=== PATIENT | male | born 1960 | race Two or more races ===

== ENCOUNTER 2016-06-19 23:26 | Emergency (ER) | payer MEDICAID, OTHER ==
[~2016-06-19] VITALS: Ht 165.1 cm; Wt 63.5 kg
[2016-06-20] MEDS ORDERED: FLUORESCEIN SOD 1 MG TEST STRIP OP ONE (08:15)
[2016-06-20] MEDS ORDERED: TETRACAINE HCL 0.5% OPTH(EYE) SOLN 2ML EACHEYE ONE (08:15)
[2016-06-20 08:38] VITALS: BP 144/88
== END 2016-06-20 09:59 | disposition home or self-care (01) ==
LOC: ER 23:33
DX: S05.01XA Injury of conjunctiva and corneal abrasion without foreign body, right eye, initial encounter (principal); Y93.89 Activity, other specified; Y99.9 Unspecified external cause status; Y92.89 Other specified places as the place of occurrence of the external cause

== ENCOUNTER 2020-10-12 18:00 | Inpatient (IN) | payer OTHER ==
[~2020-10-12] VITALS: Ht 165.1 cm; Wt 69.3 kg
[2020-10-12] MEDS ORDERED: METOCLOPRAMIDE HCL 5MG/ml INJ 2ml VIAL IV ONE (18:45)
[2020-10-12] MEDS ORDERED: ALUM & MAG HYDROX-SIMETH LIQ(MAALOX) 30 ML PO ONE (18:45)
[2020-10-12] MEDS ORDERED: LIDOCAINE VISCOUS 2% 15ML UD PO ONE (18:45)
[2020-10-12] MEDS ORDERED: SODIUM CHLORIDE 0.9% 2,000 ML IV ONE (18:45)
[2020-10-12 19:58] LABS: Basophils # (auto) 0.1 10 ^3/uL (0-0.2); Basophils % (auto) 0.6 % (0.0-2.0); Eosinophils # (auto) 0 10 ^3/uL (0-0.8); Lymphocytes # (auto) 1.1 10 ^3/uL (0.4-5.4); Monocytes # (auto) 0.8 10 ^3/uL (0-1.3); Neutrophils % (auto) 88.9 % (37.0-80.0)
[2020-10-12 20:00] LABS: Hematocrit 50.9 % (41.0-53.0); Hemoglobin 17.4 g/dL (13.5-17.5); Mean Corpuscular Hemoglobin 28.7 pg (28.0-32.0); Mean Corpuscular Hgb Conc. 34.2 g/dL (32.0-36.0); Mean Corpuscular Volume 83.9 fL (80.0-100.0); Monocytes % (auto) 4.5 % (0.0-12.0); Neutrophils # (auto) 16.4 10 ^3/uL (1.6-8.6); Nucleated Red Blood Cells % 0.7 %; Platelet Count (auto) 182 10^3/uL (140-450); Red Blood Cells 6.07 10^6/uL (4.5-5.90); Red Cell Distribution Width 16.3 % (11.8-14.3); White Blood Cell 18.5 10^3/uL (4.4-10.8)
[2020-10-12 20:12] LABS: Albumin 4.6 g/dL (3.4-5.0); BUN/Creatinine Ratio 8.7; Magnesium 2.3 mg/dL (1.6-2.6); Potassium 4.9 mmol/L (3.5-5.1)
[2020-10-12 20:13] LABS: Lactic Acid w/Reflex 5.1 mmol/L (0.4-2.0)
[2020-10-12 20:14] LABS: Bilirubin, Total 0.4 mg/dL (0.2-1.0); Total Protein 8.7 g/dL (6.4-8.2)
[2020-10-12] MEDS ORDERED: cefTRIAXone 1GM/50ML D5W 50 ML IV ONE (21:15)
[2020-10-12] MEDS ORDERED: SODIUM CHLORIDE 0.9% 1,000 ML IV ONE (21:15)
[2020-10-12 23:43] LABS: Urine Bacteria FEW /hpf (None Seen); Urine Blood Negative /uL (Negative); Urine Mucus FEW (None Seen); Urine Specific Gravity 1.016 (1.001-1.035); Urine WBC 2 /hpf (0 - 3)
[2020-10-13] MEDS ORDERED: NITROGLYCERIN 0.4 MG SL TAB SL PRN (00:30)
[2020-10-13] MEDS ORDERED: ACETAMINOPHEN 325 MG TAB PO PRN (00:30)
[2020-10-13] MEDS ORDERED: ONDANSETRON HCL 4 MG/2 ML VIAL IV PRN (00:30)
[2020-10-13] MEDS ORDERED: VANCOMYCIN PER PHARMACY 0 MG IV SCH (00:30)
[2020-10-13] MEDS ORDERED: MORPHINE SULF INJ 2 MG/ML SYRINGE 1ML IV PRN (00:30)
[2020-10-13] MEDS ORDERED: TEMAZEPAM 15 MG CAP PO PRN (00:30)
[2020-10-13] MEDS ORDERED: VANCOMYCIN 1GM/250ML 250 ML IV ONE (01:00)
[2020-10-13] MEDS: SODIUM CHLORIDE 0.9% 1,000 ML IV SCH ×2 (01:12→10:30)
[2020-10-13 02:44] VITALS: BP 142/76
[2020-10-13] MEDS: PIPERACILLIN-TAZOB 2.25GM 50 ML IV SCH ×4 (05:25→23:34)
[2020-10-13 06:29] LABS: BUN/Creatinine Ratio 16.3; Calcium 7.9 mg/dL (8.5-10.1)
[2020-10-13 08:46] VITALS: BP 133/77
[2020-10-13] MEDS: LISINOPRIL 20 MG TAB PO SCH (10:08)
[2020-10-13] MEDS: PANTOPRAZOLE 40 MG TAB PO SCH (10:08)
[2020-10-13] MEDS: HYDROcodone-ACET 5/325MG TAB PO PRN ×2 (10:25→18:54)
[2020-10-13 11:05] LABS: Amylase 44 U/L (25-115); Lipase 167 U/L (73-393)
[2020-10-13 13:00] VITALS: BP 137/76
[2020-10-13 17:00] VITALS: BP 129/80
[2020-10-13] MEDS ORDERED: DEXT1LIQ PO (17:45)
[2020-10-13] MEDS ORDERED: DIPH50TA9 PO (17:45)
[2020-10-13] MEDS ORDERED: GARL3CAP PO (17:45)
[2020-10-13] MEDS ORDERED: ST J150C2 PO (17:45)
[2020-10-13] MEDS ORDERED: SAWCAP2 PO (17:45)
[2020-10-13] MEDS ORDERED: LISI2.5T47 PO (17:45)
[2020-10-13] MEDS: SUCRALFATE 1 GM/10 ML ORAL SUSP PO SCH (21:40)
[2020-10-13 22:00] VITALS: BP 121/62
[2020-10-14] MEDS: SODIUM CHLORIDE 0.9% 1,000 ML IV SCH ×3 (03:20→18:04)
[2020-10-14 04:57] VITALS: BP 138/86
[2020-10-14] MEDS: PIPERACILLIN-TAZOB 2.25GM 50 ML IV SCH ×3 (05:27→18:04)
[2020-10-14] MEDS: SUCRALFATE 1 GM/10 ML ORAL SUSP PO SCH ×4 (06:19→21:42)
[2020-10-14 06:42] LABS: Basophils # (auto) 0.1 10 ^3/uL (0-0.2); Basophils % (auto) 1.2 % (0.0-2.0); Eosinophils # (auto) 0.1 10 ^3/uL (0-0.8); Eosinophils % (auto) 1.9 % (0.0-7.0); Hematocrit 43.5 % (41.0-53.0); Hemoglobin 14.7 g/dL (13.5-17.5); Lymphocytes # (auto) 2.2 10 ^3/uL (0.4-5.4); Lymphocytes % (auto) 30.8 % (10.0-50.0); Mean Corpuscular Hemoglobin 28.6 pg (28.0-32.0); Mean Corpuscular Hgb Conc. 33.7 g/dL (32.0-36.0); Mean Corpuscular Volume 84.8 fL (80.0-100.0); Monocytes # (auto) 0.5 10 ^3/uL (0-1.3); Monocytes % (auto) 7.1 % (0.0-12.0); Neutrophils # (auto) 4.3 10 ^3/uL (1.6-8.6); Nucleated Red Blood Cells % 0.1 %; Platelet Count (auto) 123 10^3/uL (140-450); Red Blood Cells 5.13 10^6/uL (4.5-5.90); Red Cell Distribution Width 15.9 % (11.8-14.3); White Blood Cell 7.3 10^3/uL (4.4-10.8)
[2020-10-14 06:52] LABS: Albumin 3.3 g/dL (3.4-5.0); Calcium 8.3 mg/dL (8.5-10.1); Potassium 4.1 mmol/L (3.5-5.1)
[2020-10-14 06:56] LABS: BUN/Creatinine Ratio 16.7; Bilirubin, Total 0.5 mg/dL (0.2-1.0); Total Protein 6.7 g/dL (6.4-8.2)
[2020-10-14 09:00] VITALS: BP 136/85
[2020-10-14] MEDS: LISINOPRIL 20 MG TAB PO SCH (10:05)
[2020-10-14] MEDS: PANTOPRAZOLE 40 MG TAB PO SCH (10:05)
[2020-10-14] MEDS: VANCOMYCIN 1GM/250ML 250 ML IV SCH ×2 (11:08→21:42)
[2020-10-14 13:00] VITALS: BP 159/100
[2020-10-14 17:00] VITALS: BP 141/71
[2020-10-14 22:00] VITALS: BP 135/76
[2020-10-15] MEDS: PIPERACILLIN-TAZOB 2.25GM 50 ML IV SCH ×3 (00:06→12:00)
[2020-10-15] MEDS: SODIUM CHLORIDE 0.9% 1,000 ML IV SCH ×2 (00:06→10:30)
[2020-10-15 04:53] VITALS: BP 156/72
[2020-10-15] MEDS: SUCRALFATE 1 GM/10 ML ORAL SUSP PO SCH ×2 (06:00→11:30)
[2020-10-15 09:07] VITALS: BP 133/89
[2020-10-15] MEDS: LISINOPRIL 20 MG TAB PO SCH (10:30)
[2020-10-15] MEDS: PANTOPRAZOLE 40 MG TAB PO SCH (10:30)
[2020-10-15] MEDS: VANCOMYCIN 1GM/250ML 250 ML IV SCH (10:30)
[2020-10-15 12:52] VITALS: BP 149/98
[2020-10-15 13:13] VITALS: BP 133/89
== END 2020-10-15 15:20 | disposition home or self-care (01) | DRG 720 ==
LOC: EDBD 18:00 → ER 18:00 → TELE 10-13 00:33 → TELE-WESTW 10-13 02:43
PROVIDERS: ADMIT Nurse Practitioner; ATTEND Family Medicine
DX: A41.9 Sepsis, unspecified organism (principal); N17.0 Acute kidney failure with tubular necrosis; E11.9 Type 2 diabetes mellitus without complications; E86.0 Dehydration; K52.9 Noninfective gastroenteritis and colitis, unspecified; I10 Essential (primary) hypertension; N40.0 Benign prostatic hyperplasia without lower urinary tract symptoms; Z20.822 Contact with and (suspected) exposure to COVID-19; Z83.3 Family history of diabetes mellitus; Z86.16 Personal history of COVID-19; Z89.022 Acquired absence of left finger(s)
CPT/HCPCS: 36415; 71046; 74176; 76700; 80048; 80053; 80202; 81001; 82150; 82565; 83036; 83605; 83690; 83735; 85025; 86677; 87040; 87086; 87426; 96361; 96365; 96366; 96367; 96375; G0378; J0696; J2543

== ENCOUNTER 2020-12-06 20:10 | Inpatient (IN) | payer OTHER ==
[~2020-12-06] VITALS: Ht 165.1 cm; Wt 69.5 kg
[~2020-12-06 20:10] MED LIST: DEXT1LIQ PO; DIPH50TA9 PO; GARL3CAP PO; LISI2.5T47 PO; SAWCAP2 PO; ST J150C2 PO
[2020-12-06 21:29] LABS: Basophils # (auto) 0.1 10 ^3/uL (0-0.2); Eosinophils # (auto) 0 10 ^3/uL (0-0.8); Eosinophils % (auto) 0.1 % (0.0-7.0); Hematocrit 46.1 % (41.0-53.0); Lymphocytes # (auto) 0.9 10 ^3/uL (0.4-5.4); Mean Corpuscular Hemoglobin 28.8 pg (28.0-32.0); Mean Corpuscular Hgb Conc. 34.6 g/dL (32.0-36.0); Mean Corpuscular Volume 83.3 fL (80.0-100.0); Monocytes # (auto) 0.8 10 ^3/uL (0-1.3); Monocytes % (auto) 6.1 % (0.0-12.0); Neutrophils # (auto) 11.6 10 ^3/uL (1.6-8.6); Neutrophils % (auto) 85.8 % (37.0-80.0); Platelet Count (auto) 126 10^3/uL (140-450); Red Blood Cells 5.54 10^6/uL (4.5-5.90); White Blood Cell 13.5 10^3/uL (4.4-10.8)
[2020-12-06] MEDS ORDERED: MORPHINE SULFATE 4 MG/ML SYR/VIAL IV ONE ×2 (21:30→22:45)
[2020-12-06] MEDS ORDERED: ONDANSETRON HCL 4 MG/2 ML VIAL IV ONE (21:30)
[2020-12-06 21:40] LABS: Albumin 3.9 g/dL (3.4-5.0); BUN/Creatinine Ratio 10.1; Calcium 8.8 mg/dL (8.5-10.1); Potassium 3.9 mmol/L (3.5-5.1)
[2020-12-06 21:43] LABS: Bilirubin, Total 0.6 mg/dL (0.2-1.0); Lactic Acid w/Reflex 2.6 mmol/L (0.4-2.0); Total Protein 7.9 g/dL (6.4-8.2); Urine Bacteria NONE SEEN /hpf (None Seen); Urine Blood 3+ /uL (Negative); Urine Budding Yeast FEW /hpf (None Seen); Urine Specific Gravity 1.019 (1.001-1.035); Urine WBC 12 /hpf (0 - 3)
[2020-12-06] MEDS ORDERED: KETOROLAC TROMETH 30 MG/ML 1ML VIAL IV ONE (22:45)
[2020-12-06] MEDS ORDERED: IOHEXOL 300 MG/ML 100ML BOTTLE IJ ONE (22:47)
[2020-12-07] MEDS ORDERED: cefTRIAXone 1GM/50ML D5W 50 ML IV ONE
[2020-12-07] MEDS: SODIUM CHLORIDE 0.9% 1,000 ML IV SCH ×2 (03:15→19:55)
[2020-12-07] MEDS ORDERED: ACETAMINOPHEN 325 MG TAB PO PRN (03:15)
[2020-12-07] MEDS ORDERED: hydrALAZINE HCL 20 MG/ML VL IV PRN (03:15)
[2020-12-07] MEDS ORDERED: MORPHINE SULFATE 4 MG/ML SYR/VIAL IV PRN (03:15)
[2020-12-07] MEDS ORDERED: ONDANSETRON HCL 4 MG/2 ML VIAL IV PRN (03:15)
[2020-12-07] MEDS ORDERED: MORPHINE SULF INJ 2 MG/ML SYRINGE 1ML IV PRN (03:15)
[2020-12-07] MEDS ORDERED: NITROGLYCERIN 0.4 MG SL TAB SL PRN (03:15)
[2020-12-07 05:00] VITALS: BP_SYST 131; BP_DIAS 75; BP_DIAS 77
[2020-12-07] MEDS ORDERED: TAMS0.4C36 PO (05:27)
[2020-12-07] MEDS ORDERED: ATOR80TA PO (05:29)
[2020-12-07] MEDS ORDERED: CHOL20007 BC (05:29)
[2020-12-07 08:23] LABS: Nucleated Red Blood Cells % 0.1 %
[2020-12-07 08:29] LABS: Basophils # (auto) 0 10 ^3/uL (0-0.2); Basophils % (auto) 0.5 % (0.0-2.0); Eosinophils # (auto) 0.1 10 ^3/uL (0-0.8); Eosinophils % (auto) 1.4 % (0.0-7.0); Hematocrit 41.4 % (41.0-53.0); Lymphocytes % (auto) 23.3 % (10.0-50.0); Mean Corpuscular Hemoglobin 28.3 pg (28.0-32.0); Mean Corpuscular Hgb Conc. 33.8 g/dL (32.0-36.0); Monocytes # (auto) 0.6 10 ^3/uL (0-1.3); Monocytes % (auto) 7.7 % (0.0-12.0); Neutrophils # (auto) 5.6 10 ^3/uL (1.6-8.6); Neutrophils % (auto) 67.1 % (37.0-80.0); Platelet Count (auto) 129 10^3/uL (140-450); Red Blood Cells 4.93 10^6/uL (4.5-5.90); White Blood Cell 8.4 10^3/uL (4.4-10.8)
[2020-12-07 08:31] LABS: Albumin 3.1 g/dL (3.4-5.0); Calcium 7.9 mg/dL (8.5-10.1); Potassium 3.8 mmol/L (3.5-5.1)
[2020-12-07 08:34] LABS: BUN/Creatinine Ratio 14.7; Bilirubin, Total 0.7 mg/dL (0.2-1.0); Total Protein 6.2 g/dL (6.4-8.2)
[2020-12-07] MEDS: FAMOTIDINE (10MG/ML) 2ML VL IV SCH ×2 (09:48→22:06)
[2020-12-07] MEDS: amLODIPine BESYLATE 5 MG TAB PO SCH (09:48)
[2020-12-07] MEDS: HEPARIN SODIUM (PORCINE) 5000 UNITS/ML 1ML VIAL SC SCH ×2 (10:00→22:21)
[2020-12-07 13:00] VITALS: BP 137/84
[2020-12-07 17:07] VITALS: BP 138/80
[2020-12-07] MEDS ORDERED: MANNITOL FTV 25% 12.5 GM/50 ML 50 ML IV ONE (20:00)
[2020-12-07] MEDS ORDERED: TAMSULOSIN HYDROCHLORIDE 0.4 MG CAP PO SCH (20:00)
[2020-12-07 22:00] VITALS: BP 160/89
[2020-12-07] MEDS ORDERED: cefTRIAXone 1GM/50ML D5W 50 ML IV SCH (22:00)
[2020-12-07] MEDS: HYDROcodone-ACET 5/325MG TAB PO PRN (22:06)
[2020-12-08 05:00] VITALS: BP 130/79
[2020-12-08 06:48] LABS: Basophils # (auto) 0 10 ^3/uL (0-0.2); Basophils % (auto) 0.4 % (0.0-2.0); Eosinophils # (auto) 0 10 ^3/uL (0-0.8); Eosinophils % (auto) 0.3 % (0.0-7.0); Hematocrit 42.4 % (41.0-53.0); Hemoglobin 14.4 g/dL (13.5-17.5); Lymphocytes # (auto) 1.4 10 ^3/uL (0.4-5.4); Lymphocytes % (auto) 12.1 % (10.0-50.0); Mean Corpuscular Hemoglobin 28.3 pg (28.0-32.0); Mean Corpuscular Hgb Conc. 33.9 g/dL (32.0-36.0); Mean Corpuscular Volume 83.5 fL (80.0-100.0); Monocytes # (auto) 0.6 10 ^3/uL (0-1.3); Monocytes % (auto) 5.8 % (0.0-12.0); Neutrophils # (auto) 9.2 10 ^3/uL (1.6-8.6); Neutrophils % (auto) 81.4 % (37.0-80.0); Platelet Count (auto) 145 10^3/uL (140-450); Red Blood Cells 5.08 10^6/uL (4.5-5.90); Red Cell Distribution Width 15.9 % (11.8-14.3); White Blood Cell 11.3 10^3/uL (4.4-10.8)
[2020-12-08] MEDS: HYDROcodone-ACET 5/325MG TAB PO PRN (06:57)
[2020-12-08 07:03] LABS: Potassium 3.8 mmol/L (3.5-5.1)
[2020-12-08 07:10] LABS: Albumin 3.4 g/dL (3.4-5.0); BUN/Creatinine Ratio 9.8; Bilirubin, Total 0.6 mg/dL (0.2-1.0); Calcium 8.3 mg/dL (8.5-10.1)
[2020-12-08] MEDS: FAMOTIDINE (10MG/ML) 2ML VL IV SCH (08:43)
[2020-12-08] MEDS: HEPARIN SODIUM (PORCINE) 5000 UNITS/ML 1ML VIAL SC SCH (08:44)
[2020-12-08] MEDS: amLODIPine BESYLATE 5 MG TAB PO SCH (08:44)
[2020-12-08 09:00] VITALS: BP 139/86
[2020-12-08 13:00] VITALS: BP 135/80
[2020-12-08 13:58] VITALS: BP 139/86
== END 2020-12-08 14:43 | disposition home or self-care (01) | DRG 720 ==
LOC: ER 20:10 → TELE-EAST 12-07 03:13
PROVIDERS: ADMIT Nurse Practitioner Family; ATTEND Internal Medicine
DX: A41.9 Sepsis, unspecified organism (principal); N17.0 Acute kidney failure with tubular necrosis; N20.0 Calculus of kidney; K76.0 Fatty (change of) liver, not elsewhere classified; N39.0 Urinary tract infection, site not specified; Z20.822 Contact with and (suspected) exposure to COVID-19; N18.9 Chronic kidney disease, unspecified; Z83.3 Family history of diabetes mellitus; Z83.6 Family history of other diseases of the respiratory system; E86.0 Dehydration; G47.00 Insomnia, unspecified; E78.5 Hyperlipidemia, unspecified; I12.9 Hypertensive chronic kidney disease with stage 1 through stage 4 chronic kidney disease, or unspecified chronic kidney disease; M10.9 Gout, unspecified; N40.0 Benign prostatic hyperplasia without lower urinary tract symptoms; Z79.899 Other long term (current) drug therapy
CPT/HCPCS: 36415; 74177; 80053; 81001; 83036; 83605; 84443; 85025; 85049; 87086; 87426; 96361; 96365; 96375; G0378; J0696; J1885; J2405; J3490

== ENCOUNTER 2022-12-27 23:33 | Inpatient (IN) | payer OTHER ==
[~2022-12-27] VITALS: Ht 165.1 cm; Wt 74.6 kg
[~2022-12-27 23:33] MED LIST changes: +ATOR80TA PO; +CHOL20007 BC; +ST J PO; -ST J150C2 PO; +TAMS0.4C36 PO
[2022-12-28] VITALS (7 sets, daily range): BP systolic 110–123; BP diastolic 64–81; PULSE 73–86; RESP 13–36; TEMP 97.5–97.7; O2SAT 93–97
[2022-12-28 00:07] LABS: Urine Bacteria NONE SEEN /hpf (None Seen); Urine Blood 3+ /uL (Negative); Urine Specific Gravity 1.027 (1.001-1.035); Urine WBC 8 /hpf (0 - 3)
[2022-12-28] MEDS ORDERED: HYDROcodone-ACET 5/325MG TAB PO ONE (01:45)
[2022-12-28 02:12] LABS: Basophils # (auto) 0.1 10 ^3/uL (0-0.2); Basophils % (auto) 0.8 % (0.0-2.0); Eosinophils # (auto) 0 10 ^3/uL (0-0.8); Eosinophils % (auto) 0.2 % (0.0-7.0); Hematocrit 50.1 % (41.0-53.0); Hemoglobin 16.8 g/dL (13.5-17.5); Lymphocytes # (auto) 2.8 10 ^3/uL (0.4-5.4); Lymphocytes % (auto) 18.5 % (10.0-50.0); Mean Corpuscular Hgb Conc. 33.5 g/dL (32.0-36.0); Mean Corpuscular Volume 86.6 fL (80.0-100.0); Monocytes # (auto) 0.7 10 ^3/uL (0-1.3); Monocytes % (auto) 4.8 % (0.0-12.0); Neutrophils # (auto) 11.5 10 ^3/uL (1.6-8.6); Neutrophils % (auto) 75.7 % (37.0-80.0); Nucleated Red Blood Cells % 0.1 %; Red Blood Cells 5.78 10^6/uL (4.5-5.90); Red Cell Distribution Width 15.2 % (11.8-14.3); White Blood Cell 15.2 10^3/uL (4.4-10.8)
[2022-12-28 02:26] LABS: Albumin 4.2 g/dL (3.4-5.0); BUN/Creatinine Ratio 14.8 (10.0-20.0); Calcium 9.3 mg/dL (8.5-10.1)
[2022-12-28 02:30] LABS: Bilirubin, Total 0.5 mg/dL (0.2-1.0)
[2022-12-28] MEDS ORDERED: KETOROLAC TROMETH 30 MG/ML 1ML VIAL IV ONE ×2 (03:30→07:45)
[2022-12-28] MEDS ORDERED: ACETAMINOPHEN 325 MG TAB PO PRN (07:45)
[2022-12-28] MEDS ORDERED: SODIUM CHLORIDE 0.9% 2,200 ML IV ONE (07:45)
[2022-12-28] MEDS ORDERED: ONDANSETRON HCL 4 MG/2 ML VIAL IV ONE (07:45)
[2022-12-28] MEDS ORDERED: cefTRIAXone 1GM/50ML D5W 50 ML IV SCH (07:45)
[2022-12-28] MEDS ORDERED: TAMSULOSIN HYDROCHLORIDE 0.4 MG CAP PO ONE (07:45)
[2022-12-28] MEDS ORDERED: PANTOPRAZOLE 40 MG/10 ML VIAL INJ IV ONE (07:45)
[2022-12-28] MEDS ORDERED: HYDROmorphone HCL 2 MG/ML VL/or syr IV ONE (07:45)
[2022-12-28 08:28] LABS: INR 1.03 (0.9-1.15); Partial Thromboplastin Time 30.3 SEC (24.5-34.5)
[2022-12-28 09:03] LABS: Lactic Acid w/Reflex 3.3 mmol/L (0.4-2.0)
[2022-12-28] MEDS ORDERED: HYDROmorphone HCL 2 MG/ML VL/or syr IV PRN (09:15)
[2022-12-28] MEDS ORDERED: MORPHINE SULFATE INJ 2 MG/ml SYRG IV PRN (09:15)
[2022-12-28] MEDS ORDERED: NITROGLYCERIN 0.4 MG SL TAB SL PRN (09:15)
[2022-12-28] MEDS ORDERED: hydrALAZINE HCL 20 MG/ML VL IV PRN (09:15)
[2022-12-28] MEDS ORDERED: DEXTROSE (50%) 50ML SYRG IV PRN (09:15)
[2022-12-28] MEDS: ATORVASTATIN 20 MG TAB PO SCH (10:39)
[2022-12-28] MEDS: PANTOPRAZOLE 40 MG/10 ML VIAL INJ IV SCH (10:39)
[2022-12-28] MEDS: SODIUM CHLORIDE 0.9% 1,000 ML IV SCH ×3 (10:52→22:06)
[2022-12-28] MEDS: InsuLIN REG 1unit/0.01ml Soln (100units/ml) SC SCH ×3 (11:30→22:00)
[2022-12-28] MEDS: ACCU-CHEK COMFORT CURVE STRIP VI SCH ×3 (11:30→22:05)
[2022-12-28] MEDS: TAMSULOSIN HYDROCHLORIDE 0.4 MG CAP PO SCH (17:23)
[2022-12-28] MEDS: HYDROcodone-ACET 7.5/325MG TAB PO PRN (18:07)
[2022-12-29] VITALS (7 sets, daily range): BP systolic 130–153; BP diastolic 68–79; PULSE 63–89; RESP 16–20; TEMP 97.6–98.1; O2SAT 91–95
[2022-12-29] MEDS: SODIUM CHLORIDE 0.9% 1,000 ML IV SCH ×4 (03:51→21:45)
[2022-12-29] MEDS: InsuLIN REG 1unit/0.01ml Soln (100units/ml) SC SCH ×4 (06:21→21:08)
[2022-12-29] MEDS: ACCU-CHEK COMFORT CURVE STRIP VI SCH ×4 (06:21→21:08)
[2022-12-29 07:05] LABS: Basophils # (auto) 0 10 ^3/uL (0-0.2); Basophils % (auto) 0.5 % (0.0-2.0); Eosinophils # (auto) 0.1 10 ^3/uL (0-0.8); Eosinophils % (auto) 1.4 % (0.0-7.0); Hematocrit 42.1 % (41.0-53.0); Lymphocytes # (auto) 1.5 10 ^3/uL (0.4-5.4); Lymphocytes % (auto) 16.9 % (10.0-50.0); Mean Corpuscular Hemoglobin 29.1 pg (28.0-32.0); Mean Corpuscular Hgb Conc. 33.4 g/dL (32.0-36.0); Mean Corpuscular Volume 87.2 fL (80.0-100.0); Monocytes # (auto) 0.6 10 ^3/uL (0-1.3); Monocytes % (auto) 7.2 % (0.0-12.0); Neutrophils # (auto) 6.5 10 ^3/uL (1.6-8.6); Nucleated Red Blood Cells % 0.2 %; Red Blood Cells 4.83 10^6/uL (4.5-5.90); Red Cell Distribution Width 15.2 % (11.8-14.3); White Blood Cell 8.7 10^3/uL (4.4-10.8)
[2022-12-29 07:18] LABS: Albumin 2.9 g/dL (3.4-5.0); BUN/Creatinine Ratio 14.6 (10.0-20.0); Calcium 7.5 mg/dL (8.5-10.1); Potassium 4.4 mmol/L (3.5-5.1)
[2022-12-29 07:20] LABS: Bilirubin, Total 0.6 mg/dL (0.2-1.0); Total Protein 5.7 g/dL (6.4-8.2)
[2022-12-29] MEDS: PANTOPRAZOLE 40 MG/10 ML VIAL INJ IV SCH (09:23)
[2022-12-29] MEDS: ATORVASTATIN 20 MG TAB PO SCH (09:23)
[2022-12-29] MEDS: cefTRIAXone 1GM/50ML D5W 50 ML IV SCH (09:24)
[2022-12-29] MEDS: HYDROcodone-ACET 7.5/325MG TAB PO PRN (10:43)
[2022-12-29] MEDS ORDERED: MANNITOL FTV 25% 12.5 GM/50 ML 50 ML IV ONE (13:45)
[2022-12-29] MEDS: TAMSULOSIN HYDROCHLORIDE 0.4 MG CAP PO SCH (17:48)
[2022-12-30] MEDS: SODIUM CHLORIDE 0.9% 1,000 ML IV SCH ×2 (03:28→06:08)
[2022-12-30 05:00] VITALS: BP 141/77; PULSE 70; RESP 16; TEMP 98.1; O2SAT 93
[2022-12-30] MEDS: ACCU-CHEK COMFORT CURVE STRIP VI SCH ×2 (06:09→11:30)
[2022-12-30] MEDS: InsuLIN REG 1unit/0.01ml Soln (100units/ml) SC SCH ×2 (06:09→11:30)
[2022-12-30 06:53] LABS: Basophils # (auto) 0 10 ^3/uL (0-0.2); Basophils % (auto) 0.5 % (0.0-2.0); Eosinophils # (auto) 0.1 10 ^3/uL (0-0.8); Eosinophils % (auto) 1.4 % (0.0-7.0); Hematocrit 39.8 % (41.0-53.0); Hemoglobin 13.2 g/dL (13.5-17.5); Lymphocytes # (auto) 1.7 10 ^3/uL (0.4-5.4); Lymphocytes % (auto) 18.8 % (10.0-50.0); Mean Corpuscular Hemoglobin 29.1 pg (28.0-32.0); Mean Corpuscular Hgb Conc. 33.2 g/dL (32.0-36.0); Mean Corpuscular Volume 87.7 fL (80.0-100.0); Monocytes # (auto) 0.6 10 ^3/uL (0-1.3); Monocytes % (auto) 6.7 % (0.0-12.0); Neutrophils # (auto) 6.7 10 ^3/uL (1.6-8.6); Neutrophils % (auto) 72.6 % (37.0-80.0); Nucleated Red Blood Cells % 0.1 %; Red Blood Cells 4.55 10^6/uL (4.5-5.90); White Blood Cell 9.3 10^3/uL (4.4-10.8)
[2022-12-30 07:03] LABS: BUN/Creatinine Ratio 15.6 (10.0-20.0); Calcium 7.6 mg/dL (8.5-10.1)
[2022-12-30 08:00] VITALS: PULSE 88
[2022-12-30 09:00] VITALS: BP 157/89; PULSE 74; RESP 18; TEMP 98.1; O2SAT 94
[2022-12-30] MEDS: cefTRIAXone 1GM/50ML D5W 50 ML IV SCH (09:25)
[2022-12-30] MEDS: PANTOPRAZOLE 40 MG/10 ML VIAL INJ IV SCH (09:25)
[2022-12-30] MEDS: ATORVASTATIN 20 MG TAB PO SCH (09:25)
[2022-12-30] MEDS ORDERED: LACTULOSE 20Gm/30ML SOLN PO ONE (11:00)
[2022-12-30] MEDS ORDERED: PANT40T PO (11:01)
[2022-12-30] MEDS ORDERED: ACET1CAP14 PO (11:01)
[2022-12-30] MEDS ORDERED: CEPH500C PO (11:01)
[2022-12-30] MEDS ORDERED: TAMS1CAP25 PO (11:01)
[2022-12-30 13:00] VITALS: BP 166/81; PULSE 65; RESP 18; TEMP 99; O2SAT 96
== END 2022-12-30 15:39 | disposition home or self-care (01) | DRG 720 ==
LOC: ER 23:37 → TELE 12-28 09:22 → TELE-WESTW 12-28 12:14
PROVIDERS: ADMIT Internal Medicine; ATTEND Student in an Organized Health Care Education/Training Program
DX: A41.9 Sepsis, unspecified organism (principal); E87.20 Acidosis, unspecified; N17.9 Acute kidney failure, unspecified; N13.8 Other obstructive and reflux uropathy; E11.65 Type 2 diabetes mellitus with hyperglycemia; N13.6 Pyonephrosis; E78.5 Hyperlipidemia, unspecified; N40.1 Benign prostatic hyperplasia with lower urinary tract symptoms; I10 Essential (primary) hypertension; M10.9 Gout, unspecified; F10.20 Alcohol dependence, uncomplicated; Y90.9 Presence of alcohol in blood, level not specified; Z79.899 Other long term (current) drug therapy; N30.01 Acute cystitis with hematuria
CPT/HCPCS: 36415; 71045; 74176; 80048; 80053; 81001; 82553; 82962; 83605; 83930; 85025; 85610; 85730; 86850; 86900; 86901; 87040; 87086; 93005; 96365; 96375; C9113; G0378; J0696; J1815; J1885; J2405

== ENCOUNTER 2023-08-17 12:05 | Emergency (ER) | payer OTHER ==
[~2023-08-17] VITALS: Ht 165.1 cm; Wt 69.7 kg
[~2023-08-17 12:05] MED LIST changes: +ACET1CAP14 PO; +CEPH500C PO; +PANT40T PO; +TAMS1CAP25 PO
[2023-08-17] MEDS ORDERED: INDO50CA82 PO (18:07)
[2023-08-17] MEDS ORDERED: HYDR-4902 PO (18:07)
[2023-08-17] MEDS: HYDROcodone-ACET 5/325MG TAB PO ONE (18:24)
[2023-08-17] MEDS: DexAMETHasone SOD PHOS 10MG/1ML VIAL INJ IM ONE (18:25)
[2023-08-17 18:44] VITALS: BP 149/77; PULSE 83; RESP 18; TEMP 98; O2SAT 97
== END 2023-08-17 18:46 | disposition home or self-care (01) ==
LOC: ER 12:05
DX: M10.9 Gout, unspecified (principal); M25.461 Effusion, right knee; I10 Essential (primary) hypertension; E78.5 Hyperlipidemia, unspecified
CPT/HCPCS: 36415; 73562; 84550; 93971; 96372; 99285; J1100

== ENCOUNTER 2023-10-19 13:42 | Inpatient (IN) | payer OTHER ==
[~2023-10-19] VITALS: Ht 165.1 cm; Wt 71.4 kg
[~2023-10-19 13:42] MED LIST changes: +HYDR-4902 PO; +INDO50CA82 PO
[2023-10-19 16:41] LABS: Basophils # (auto) 0 10 ^3/uL (0-0.2); Basophils % (auto) 0.4 % (0.0-2.0); Eosinophils # (auto) 0 10 ^3/uL (0-0.8); Hemoglobin 15.5 g/dL (13.5-17.5); Lymphocytes % (auto) 7.8 % (10.0-50.0); Mean Corpuscular Hemoglobin 28.6 pg (28.0-32.0); Mean Corpuscular Hgb Conc. 33.6 g/dL (32.0-36.0); Mean Corpuscular Volume 84.9 fL (80.0-100.0); Monocytes # (auto) 0.7 10 ^3/uL (0-1.3); Neutrophils # (auto) 10.7 10 ^3/uL (1.6-8.6); Neutrophils % (auto) 85.8 % (37.0-80.0); Nucleated Red Blood Cells % 0.1 %; Red Blood Cells 5.41 10^6/uL (4.5-5.90); Red Cell Distribution Width 15.7 % (11.8-14.3); White Blood Cell 12.5 10^3/uL (4.4-10.8)
[2023-10-19 17:02] LABS: Alanine Aminotransferase 15 U/L (7-40); Anion Gap 8 (5-15); BUN/Creatinine Ratio 10.2 (10.0-20.0); Blood Urea Nitrogen 13 mg/dL (9-23); Carbon Dioxide 26 mmol/L (20-30); Chloride 101 mmol/L (98-107); Glucose 142 mg/dL (74-106); Lipase 47 U/L (12-53); Potassium 3.5 mmol/L (3.5-5.1); Sodium 135 mmol/L (136-145)
[2023-10-19 17:03] LABS: Albumin 4.7 g/dL (3.2-4.8); Aspartate Aminotransferase 17 U/L (13-40); Total Protein 6.8 g/dL (5.7-8.2)
[2023-10-19 17:25] LABS: Alkaline Phosphatase 90 U/L (46-116)
[2023-10-19] MEDS: fentaNYL CITRATE 100 MCG/2 ML VL IV ONE ×2 (18:34→19:52)
[2023-10-19 18:40] VITALS: PULSE 106; RESP 20; O2SAT 97
[2023-10-19 19:03] LABS: Urine Bacteria None Seen /hpf (None Seen)
[2023-10-19 19:29] LABS: Urine Blood Negative /uL (Negative); Urine Clarity Clear (Clear); Urine Color Yellow (Yellow); Urine Protein, UAD 1+ (Negative); Urine Specific Gravity 1.027 (1.001-1.035); Urine Urobilinogen Normal (Negative); Urine WBC 1 /hpf (0 - 3); Urine pH 5.5 (5.0-9.0)
[2023-10-19 19:40] VITALS: PULSE 104; RESP 18; O2SAT 94
[2023-10-19] MEDS: SODIUM CHLORIDE 0.9% 1,000 ML IV ONE ×2 (19:47→21:08)
[2023-10-19] MEDS: TAMSULOSIN HYDROCHLORIDE 0.4 MG CAP PO ONE (19:52)
[2023-10-19] MEDS: cefTRIAXone 1GM/50ML D5W 50 ML IV ONE (19:53)
[2023-10-19] MEDS ORDERED: MORPHINE SULFATE INJ 2 MG/ml SYRG IV PRN (20:45)
[2023-10-19] MEDS ORDERED: hydrALAZINE HCL 20 MG/ML VL IV PRN (20:45)
[2023-10-19] MEDS ORDERED: NITROGLYCERIN 0.4 MG SL TAB SL PRN (20:45)
[2023-10-19] MEDS ORDERED: DEXTROSE (50%) 50ML SYRG IV PRN (20:45)
[2023-10-19] MEDS: SODIUM CHLORIDE 0.9% 1,000 ML IV SCH (21:08)
[2023-10-19] MEDS: ACCU-CHEK COMFORT CURVE STRIP VI SCH (21:16)
[2023-10-19] MEDS: InsuLIN REG 1unit/0.01ml Soln (100units/ml) SC SCH (21:16)
[2023-10-19] MEDS: ONDANSETRON HCL 4 MG/2 ML VIAL IV PRN (21:44)
[2023-10-19] MEDS: HYDROmorphone HCL 2 MG/ML VL/or syr IV PRN (21:45)
[2023-10-20] MEDS ORDERED: BENA10TA16 PO (01:53)
[2023-10-20] MEDS ORDERED: MAGN400T40 PO (01:54)
[2023-10-20] MEDS ORDERED: METF-370 PO (01:54)
[2023-10-20 01:55] VITALS: BP 151/81; PULSE 75; RESP 20; TEMP 98.1; TEMP 98.7; O2SAT 98
[2023-10-20 05:00] VITALS: BP 150/92; PULSE 89; RESP 22; TEMP 97.9; O2SAT 95
[2023-10-20 07:09] LABS: Basophils # (auto) 0 10 ^3/uL (0-0.2); Basophils % (auto) 0.2 % (0.0-2.0); Eosinophils # (auto) 0 10 ^3/uL (0-0.8); Eosinophils % (auto) 0.4 % (0.0-7.0); Hematocrit 42.1 % (41.0-53.0); Hemoglobin 13.9 g/dL (13.5-17.5); Lymphocytes # (auto) 1.4 10 ^3/uL (0.4-5.4); Lymphocytes % (auto) 15.7 % (10.0-50.0); Mean Corpuscular Hemoglobin 28.6 pg (28.0-32.0); Mean Corpuscular Hgb Conc. 33.1 g/dL (32.0-36.0); Mean Corpuscular Volume 86.3 fL (80.0-100.0); Monocytes # (auto) 0.7 10 ^3/uL (0-1.3); Monocytes % (auto) 7.6 % (0.0-12.0); Neutrophils % (auto) 76.1 % (37.0-80.0); Nucleated Red Blood Cells % 0.1 %; Red Blood Cells 4.88 10^6/uL (4.5-5.90); White Blood Cell 9.1 10^3/uL (4.4-10.8)
[2023-10-20 07:10] LABS: Chloride 103 mmol/L (98-107); Potassium 3.5 mmol/L (3.5-5.1); Sodium 136 mmol/L (136-145)
[2023-10-20 07:11] LABS: Anion Gap 9 (5-15); Calcium 8.9 mg/dL (8.5-10.1); Carbon Dioxide 24 mmol/L (20-30)
[2023-10-20 07:16] LABS: Blood Urea Nitrogen 9 mg/dL (9-23); Glucose 145 mg/dL (74-106)
[2023-10-20 09:00] VITALS: BP 152/85; PULSE 85; RESP 20; TEMP 97.9; O2SAT 94
[2023-10-20] MEDS: ENOXAPARIN SOD 40 MG/0.4 ML SYRINGE SC SCH (09:51)
[2023-10-20] MEDS: KETOROLAC TROMETH 30 MG/ML 1ML VIAL IV PRN (12:17)
[2023-10-20 13:13] VITALS: BP 148/89
[2023-10-20 17:00] VITALS: BP 137/77; PULSE 74; RESP 20; TEMP 98.2; O2SAT 94
[2023-10-20] MEDS: TAMSULOSIN HYDROCHLORIDE 0.4 MG CAP PO SCH (17:54)
[2023-10-20 21:00] VITALS: BP 164/103; PULSE 85; RESP 22; TEMP 98.2; O2SAT 96
[2023-10-21] VITALS (7 sets, daily range): BP systolic 136–161; BP diastolic 69–100; PULSE 61–86; RESP 17–20; TEMP 97.9–99.2; O2SAT 93–95
[2023-10-21] MEDS: HYDROmorphone HCL 2 MG/ML VL/or syr IV PRN (00:05)
[2023-10-21] MEDS ORDERED: HYDROmorphone HCL 2 MG/ML VL/or syr IV PRN (09:30)
[2023-10-21] MEDS: HYDROcodone-ACET 5/325MG TAB PO SCH (10:10)
[2023-10-21 10:27] LABS: Basophils # (auto) 0 10 ^3/uL (0-0.2); Basophils % (auto) 0.6 % (0.0-2.0); Eosinophils # (auto) 0.1 10 ^3/uL (0-0.8); Eosinophils % (auto) 1.2 % (0.0-7.0); Hematocrit 40.8 % (41.0-53.0); Hemoglobin 13.5 g/dL (13.5-17.5); Lymphocytes # (auto) 1.2 10 ^3/uL (0.4-5.4); Lymphocytes % (auto) 16.3 % (10.0-50.0); Mean Corpuscular Hemoglobin 28.5 pg (28.0-32.0); Mean Corpuscular Hgb Conc. 33.2 g/dL (32.0-36.0); Monocytes # (auto) 0.5 10 ^3/uL (0-1.3); Monocytes % (auto) 6.6 % (0.0-12.0); Neutrophils # (auto) 5.5 10 ^3/uL (1.6-8.6); Neutrophils % (auto) 75.3 % (37.0-80.0); Red Blood Cells 4.74 10^6/uL (4.5-5.90); Red Cell Distribution Width 15.9 % (11.8-14.3); White Blood Cell 7.2 10^3/uL (4.4-10.8)
[2023-10-21 10:41] LABS: Alanine Aminotransferase 10 U/L (7-40); Albumin 3.8 g/dL (3.2-4.8); Alkaline Phosphatase 66 U/L (46-116); Anion Gap 6 (5-15); Aspartate Aminotransferase 18 U/L (13-40); BUN/Creatinine Ratio 8.3 (10.0-20.0); Bilirubin, Total 0.7 mg/dL (0.2-1.0); Blood Urea Nitrogen 11 mg/dL (9-23); Calcium 8.9 mg/dL (8.5-10.1); Carbon Dioxide 23 mmol/L (20-30); Chloride 106 mmol/L (98-107); Potassium 3.7 mmol/L (3.5-5.1); Sodium 135 mmol/L (136-145); Total Protein 5.9 g/dL (5.7-8.2)
[2023-10-21 10:43] LABS: Glucose 249 mg/dL (74-106)
[2023-10-21 12:59] LABS: INR 1.01 (0.9-1.15); Prothrombin Time 10.7 sec (9.3-11.8)
[2023-10-21] MEDS: INSULIN LANTUS (GLARGINE) 1 /0.01ml (100units/ml) SC SCH (21:59)
[2023-10-22] VITALS (12 sets, daily range): BP systolic 119–167; BP diastolic 64–89; PULSE 53–99; RESP 12–20; TEMP 97.6–98.2; O2SAT 93–100
[2023-10-22 06:15] LABS: Basophils # (auto) 0 10 ^3/uL (0-0.2); Basophils % (auto) 0.7 % (0.0-2.0); Eosinophils # (auto) 0.2 10 ^3/uL (0-0.8); Eosinophils % (auto) 4.1 % (0.0-7.0); Hematocrit 38.3 % (41.0-53.0); Hemoglobin 12.8 g/dL (13.5-17.5); Lymphocytes % (auto) 35.4 % (10.0-50.0); Mean Corpuscular Hemoglobin 28.4 pg (28.0-32.0); Mean Corpuscular Hgb Conc. 33.3 g/dL (32.0-36.0); Mean Corpuscular Volume 85.1 fL (80.0-100.0); Monocytes # (auto) 0.5 10 ^3/uL (0-1.3); Monocytes % (auto) 8.6 % (0.0-12.0); Neutrophils # (auto) 2.8 10 ^3/uL (1.6-8.6); Neutrophils % (auto) 51.2 % (37.0-80.0); Nucleated Red Blood Cells % 0.2 %; Red Cell Distribution Width 15.8 % (11.8-14.3); White Blood Cell 5.5 10^3/uL (4.4-10.8)
[2023-10-22 06:29] LABS: Alanine Aminotransferase 11 U/L (7-40); Albumin 3.5 g/dL (3.2-4.8); Alkaline Phosphatase 59 U/L (46-116); Anion Gap 7 (5-15); Aspartate Aminotransferase 17 U/L (13-40); BUN/Creatinine Ratio 9.9 (10.0-20.0); Blood Urea Nitrogen 10 mg/dL (9-23); Calcium 8.9 mg/dL (8.5-10.1); Carbon Dioxide 23 mmol/L (20-30); Chloride 111 mmol/L (98-107); Potassium 3.8 mmol/L (3.5-5.1); Sodium 141 mmol/L (136-145)
[2023-10-22 06:30] LABS: Bilirubin, Total 0.5 mg/dL (0.2-1.0); Total Protein 5.5 g/dL (5.7-8.2)
[2023-10-22 06:32] LABS: Glucose 115 mg/dL (74-106)
[2023-10-22] MEDS: LIDOCAINE 2%HCL (LOCAL ANESTH.) INJ 20ML MDV ONE (12:01)
[2023-10-22] MEDS: MIDAZOLAM HCL 2MG/2ML 2ml VIAL (1mg/ml) ONE (12:03)
[2023-10-22] MEDS: fentaNYL CITRATE 100 MCG/2 ML VL ONE (12:03)
[2023-10-22] MEDS: IODIXANOL 320MG/ML 100ML BTL IV ONE (12:15)
[2023-10-22] MEDS: hydrALAZINE HCL 20 MG/ML VL ONE (12:19)
[2023-10-22] MEDS: cefTRIAXone 1GM/50ML D5W 50 ML IV ONE (13:01)
== END 2023-10-22 21:43 | disposition home health service (06) | DRG 465 ==
LOC: EDUNIT# 13:42 → ER 13:42 → EDBD 13:42 → OVERFLOW 20:41 → WEST WING 20:41 → OBSVTOIN 10-20 14:44
PROVIDERS: ADMIT Hospitalist; ATTEND Hospitalist
PROC: 0T9430Z Drainage of Left Kidney Pelvis with Drainage Device, Percutaneous Approach (ICD-10-PCS; principal; 2023-10-22)
DX: N13.2 Hydronephrosis with renal and ureteral calculous obstruction (principal); E11.9 Type 2 diabetes mellitus without complications; E78.5 Hyperlipidemia, unspecified; I10 Essential (primary) hypertension; N40.0 Benign prostatic hyperplasia without lower urinary tract symptoms; Z79.899 Other long term (current) drug therapy; Z83.3 Family history of diabetes mellitus; Z81.1 Family history of alcohol abuse and dependence; Z87.442 Personal history of urinary calculi; Z87.891 Personal history of nicotine dependence
CPT/HCPCS: 36415; 50432; 74018; 74176; 74425; 76775; 76942; 80048; 80053; 81001; 82962; 83605; 83690; 83880; 84484; 85025; 85610; 85730; 93005; 96361; 96365; 96375; 96376; 99152; G0378; J1815; J1885; J2250; J2405; Q9967